=== PATIENT | male | born 1945 | race Caucasian/White ===

== ENCOUNTER 2019-11-10 11:12 | Outpatient (CLI) | payer MEDICARE, OTHER, SELFPAY ==
--- NOTE | 2019-11-10 11:16 | ECG_ITS ---
Measurements Intervals [place] Rate: 69 P: 48 [place]: 189 QRS: -51 QRSD: 89 T: 51 QT: 377 QTc: 405 Interpretive Statements SINUS RHYTHM LEFT ANTERIOR FASCICULAR BLOCK BASELINE ARTIFACT- I, II, III, AVL, AVF, V2 ABNORMAL ECG Electronically Signed On 11-10-2019 11:43:26 CDT by Rachid Mi D.O.
[2019-11-10 11:59] LABS: Anion Gap 5 mmol/L (8-16); Blood Urea Nitrogen 18 mg/dL (9-20); Carbon Dioxide 31 mmol/L (22-30); Chloride 102 mmol/L (98-107); Estimated Glomerular Filt Rate > 60; Glucose 98 mg/dL (75-110); Potassium 4.1 mmol/L (3.4-5.0); Sodium 138 mmol/L (137-145)
== END 2019-11-10 11:13 | disposition home or self-care (01) ==
PROVIDERS: Anesthesiology; PCP Physician Assistant; Visit Provider Urology
DX: Z01.818 Encounter for other preprocedural examination (principal); I25.2 Old myocardial infarction; I10 Essential (primary) hypertension; R94.31 Abnormal electrocardiogram [ECG] [EKG]
CPT/HCPCS: 36415; 80048; 93005

== ENCOUNTER 2019-11-16 02:21 | Outpatient (CLI) | payer MEDICARE, OTHER, SELFPAY ==
[2019-11-16 17:03] LABS: SARS-CoV-2 RNA PCR Negative
== END 2019-11-16 02:22 | disposition home or self-care (01) ==
LOC: ANHCOVIDDT 02:22
PROVIDERS: PCP Physician Assistant; Visit Provider Urology
DX: Z01.812 Encounter for preprocedural laboratory examination (principal); Z20.828 Contact with and (suspected) exposure to other viral communicable diseases
CPT/HCPCS: 87635; C9803; U0003

== ENCOUNTER 2019-11-18 00:11 | Day surgery (SDC) | payer MEDICARE, OTHER, SELFPAY ==
[2019-11-09 09:13] VITALS: BMI 23.2
--- NOTE | 2019-11-12 07:32 | PM.HPGS ---
History of Present Illness History of Present Illness Consent: Risks, benefits, and alternatives have been discussed and questions answered. Patient agrees to proceed with procedure. Chief complaint: Prostate Cancer Narrative: Deyvi Wyatt is a 74 year old male with recently diagnosed CaP who's opted for pelvic radiaiton as definitive management. Review of Systems Cardiovascular: Cardiovascular: Denies chest pain, Denies lightheadedness, Denies palpitations and Denies dyspnea Respiratory: Respiratory: Denies dyspnea Gastrointestinal: Gastrointestinal: Denies diarrhea, Denies nausea and Denies vomiting Genitourinary: Genitourinary: Denies hematuria and Denies dysuria Endocrine: Endocrine: Denies palpitations [facility] Social History Social History Smoking status: Never smoker Spiritual care concerns: No Meds Home Medications and Allergies Home Medications Medication Instructions Recorded Confirmed Type aspirin [Aspir-81] 81 mg PO DAILY 11/09/19 11/09/19 History atorvastatin 40 mg PO HS 11/09/19 11/09/19 History hydrochlorothiazide 12.5 mg PO QAM 11/09/19 11/09/19 History lisinopril 20 mg PO QAM 11/09/19 11/09/19 History metoprolol succinate 25 mg PO QAM 11/09/19 11/09/19 History sertraline 50 mg PO QAM 11/09/19 11/09/19 History Allergies Allergy/AdvReac Type Severity Reaction Status Date / Time No Known Allergies Allergy Verified 11/09/19 08:57 Exam Const: General: no acute distress Resp: Effort & Inspection: normal respiratory effort GI: Inspection: non-distended GI Palp: No abdominal tenderness and No Guarding due to palpation present (GI) Auscultation: normal bowel sounds Assessment and Plan Assessment and plan (1) Prostate cancer: Code(s): C61 - Malignant neoplasm of prostate Status: Acute Assessment and Plan: Transrectal ultrasound with transperineal placement of SpaceOAR. Pt. aware of risks of this procedure including, but not limited to, rectal injury, urinary tract infection with possible sepsis or septic shock, hematuria and inability to deliver the SpaceOAR. He also aware there is no alternative procedure to accomplish the same ends at this time.
[2019-11-18] VITALS (9 sets, daily range): BP systolic 129–150; BP diastolic 73–87; PULSE 57–76; RESP 12–16; TEMP 36.3–36.7; O2SAT 97–100
--- NOTE | 2019-11-18 07:10 | WPDHPUPDATE1 ---
History and Physical Update Update Date/Time: 11/18/19 07:10 History and Physical has been reviewed, including an updated exam of the patient. There are NO changes in the patient's condition. Risks, benefits, and alternatives have been discussed and questions answered. Patient agrees to proceed with procedure.
[2019-11-18] MEDS: LACTATED RINGERS 1,000 ML 30 ML IV CONT (11:15)
--- NOTE | 2019-11-18 11:31 | P.PNAN_ITS ---
Anes - Initial Pre Proc Eval Procedure: Operation Date: 11/18/19 13:00 Proposed Procedures p Insertion SpaceOAR Hydrogel System - Cal Saucedo MD Date/Time: 11/18/19 11:31 Surgeon: Cal Saucedo MD Pre Op Diagnosis: Prostate Cancer Patient Data Age: 74 Gender: M Height: 1.75 m Weight: 70.3 kg Last Vital Signs Temp 36.3 C L 11/18/19 11:00 Pulse 57 L 11/18/19 11:00 Resp 16 11/18/19 11:00 BP 145/83 H 11/18/19 11:00 Pulse Ox 99 11/18/19 11:00 Allergies Allergy/AdvReac Type Severity Reaction Status Date / Time No Known Allergies Allergy Verified 11/18/19 11:03 Home Medications Medication Instructions Recorded Confirmed Type aspirin [Aspir-81] 81 mg PO DAILY 11/09/19 11/18/19 History atorvastatin 40 mg PO HS 11/09/19 11/18/19 History hydrochlorothiazide 12.5 mg PO QAM 11/09/19 11/18/19 History lisinopril 20 mg PO QAM 11/09/19 11/18/19 History metoprolol succinate 25 mg PO QAM 11/09/19 11/18/19 History sertraline 50 mg PO QAM 11/09/19 11/18/19 History ECG: Date of Service: 11/10/19 Procedure(s): CA 12 lead EKG Accession Number(s): [id number] cc: ~ Measurements Intervals [place] Rate: 69 P: 48 [place]: 189 QRS: -51 QRSD: 89 T: 51 QT: 377 QTc: 405 Interpretive Statements SINUS RHYTHM LEFT ANTERIOR FASCICULAR BLOCK BASELINE ARTIFACT- I, II, III, AVL, AVF, V2 ABNORMAL ECG Electronically Signed On 11-10-2019 11:43:26 CDT by Rachid Mi D.O. Dictated By: Rachid Mi DO 11/10/19 1159 Patient hx anesthesia problems: none Family hx anesthesia problems: none PMFSH Past Medical History Medical History (Updated 11/18/19 @ 11:33 by Christian Birmingham MD) Anxiety Arthritis CAD (coronary artery disease) Depression Hx of myocardial infarction Prostate cancer Surgical History Surgical History (Updated 11/18/19 @ 11:33 by Christian Birmingham MD) Hx of cardiac catheterization Social History Social History Smoking status: Never smoker Living arrangements: with family Spiritual care concerns: No Anes - Eval Final PreProcedure Day of Procedure 11/18/19 11:31 Patient weight: normal Heart: regular rate and rhythm Lungs: clear to auscultation and normal air movement Airway: Mallampati scale class II Neurological: alert and oriented Last oral intake: >/= 8 hours ASA classification: III Emergent: no Anesthetic plan: proceed Anesthesia type and monitoring: general LMA Informed Consent: The patient's anesthetic plan and its attendant risks and benefits were discussed with the patient/family/POA. Questions were solicited and answers provided to the satisfaction of the patient/family/POA.
--- NOTE | 2019-11-18 12:28 | SUR.PREOP ---
Discussed delay with patient. Voices understanding.
[2019-11-18] MEDS: ceFAZolin 2 GM/D5W 50 ML 2 GM/50 ML BAG IVPB (13:18)
--- NOTE | 2019-11-18 13:38 | P.OP_ITS ---
Procedure Note - Detailed Date of procedure: 11/18/19 Pre-op diagnosis: Prostate Cancer Post-op diagnosis: same Procedure performed: Insertion SpaceOAR Description of procedure: This patient has been diagnosed with prostate cancer. Patient has met with a radiation oncologist who has prescribed a course of radiation for treatment of the malignancy. Please refer to the Radiation Oncologist's note for radiation method, dose, number of fractions. After discussing with the radiation oncologist and the patient, it has been agreed upon to proceed with SpaceOAR placement. The purpose of SpaceOAR is to reduce rectal irradiation during radiation therapy by placing an absorbable polyethylene glycol (PEG) hydrogel (SpaceOAR) into perirectal fat space, thereby pushing the rectum away from the prostate. Prior to the procedure, a timeout was performed confirming the patient's identity and planned the procedure. Anesthesia was induced without complication. Antibiotics were administered prophylactically, and the patient completed an enema at home prior to the procedure. The patient was positioned in the dorsal lithotomy position. A transrectal ultrasound probe was inserted per rectum with clear visualization of the prostatic base and apex. SpaceOAR hydrogel was prepared as described in the certified ophthalmic technologist?s 'Instructions For Use'. Under transrectal ultrasound guidance, a 15 cm 18G needle was inserted, transperineal, through the rectourethralis muscle and the needle tip advanced into the perirectal fat posterior to the prostate. The needle position, and downward bevel, were confirmed in both sagittal and axial cummings. 3-5cc of Sterile Saline was used to hydro-dissect the space between the Denonvilliers? fascia and anterior rectal wall. Aspiration did not yield any bleeding. With the needle tip at mid gland, the axial field was viewed to confirm the needle was not in the rectal wall -- movement of the needle tip without corresponding movement of the rectal wall confirmed perirectal placement. The assembled SpaceOAR delivery system was then attached to the 18G needle. Under ultrasound guidance in the sagittal plane, a smooth, continuous injection technique was used to dispense all 10cc of the SpaceOAR hydrogel into the space between the prostate and rectum. Optimal visualization of the needle during hydrogel administration was maintained at all times. An axial measurement of the space between the prostate (mid gland) and rectum immediately post-SpaceOAR injection was noted and measured [17mm]. No suspected penetration or compromise of the rectal wall occurred. Anesthesia: GLMA Surgeon: Cal Saucedo MD Drains: No Packing: Yes Pathology: yes Complications: No immediate complications Condition: stable Disposition: PACU
== END 2019-11-18 15:30 | disposition home or self-care (01) ==
PROVIDERS: PCP Physician Assistant; Visit Provider Urology
PROC: (CPT 55874; principal; 2019-11-18 13:00)
DX: C61 Malignant neoplasm of prostate (principal)
CPT/HCPCS: 55874; A9270; C1889; J0690; J1100; J2370; J2405; J2704; J3010; J7120